=== PATIENT | female | born 2000 | race African-American/Black ===

== ENCOUNTER 2023-03-27 02:05 | Emergency (ER) | payer MEDICAID, OTHER ==
[~2023-03-27] VITALS: Ht 172.7 cm; Wt 70.3 kg
[2023-03-27] MEDS ORDERED: BENZ1LOZ58 PO (03:46)
[2023-03-27] MEDS ORDERED: PENI500T PO (03:46)
[2023-03-27] MEDS ORDERED: IBUP-1953 PO (03:46)
[2023-03-27] MEDS: dexaMETHasone SOD PHOSPHATE 10 MG/ML VIAL IM ONE (04:00)
[2023-03-27 04:02] VITALS: BP 133/78; TEMP 97.7; O2SAT 100
== END 2023-03-27 04:05 | disposition home or self-care (01) ==
LOC: ER 02:16
DX: J02.9 Acute pharyngitis, unspecified (principal)
CPT/HCPCS: 99283; 96372; 87880; J1100; 86403-TC